=== PATIENT | male | born 1945 | race Caucasian/White ===

== ENCOUNTER 2025-04-02 10:43 | Outpatient (REF) | payer MEDICARE, SELFPAY ==
--- OUTSIDE RECORDS SUMMARY | 2025-04-02 12:21 | XMS_ITS | Clinical Summary ---
Author Organization [facility] Address [address] [place] [address] Care Team Providers Care Quality Control Specialist Name Role Phone Osmar Nance DO Primary Care Provider [phone] Allergies No known active allergies Medications No known medications Active Problems No known active problems Social History Tobacco Use Types Packs/Day Years Used Date Smoking Tobacco: Every Day Cigarettes 0.5 Smokeless Tobacco: Never Alcohol Use Standard Drinks/Week Comments Yes 0 (1 standard drink = 0.6 oz pur e alcohol) Sex and Gender Information Value Date Recorded Sex Assigned at Male 01/13/2023 12:13 PM EDT Gender Identity Not on file Sexual Orientation Not on file Job Start Date Occupation Industry Not on file Not on file Not on file Last Filed Vital Signs Vital Sign Reading Time Taken Comments Blood Pressure 138/66 02/27/2023 1:40 PM EDT Pulse 78 02/27/2023 1:40 PM EDT Temperature 36.9 ??C (98.4 ??F) 02/27/2023 1:40 PM ED T Respiratory Rate - - Oxygen Saturation 97% 02/27/2023 1:40 PM EDT Inhaled Oxygen Concentration - - Weight 64.9 kg (143 lb) 02/27/2023 1:40 PM EDT Height - - Body Mass Index - - Plan of Treatment Health Maintenance Due Date Last Done Comments Hepatitis C Screening 1945 COVID-19 Vaccine (#1) 1945 Pneumococcal Vaccine (1 of 2 - PCV) 1953 Depression Screening 1959 Preventative Health Evaluation 1965 DTap / Tdap / Td (1 - Tdap) 1966 Shingrix-Zoster Vaccine (1 of 2) 1997 Fall Risk Assessment 02/25/2012 RSV Adult > 60+ Yrs or Pregn ant (1 - 1-dose 75+ series) 2022 Influenza Vaccine (Season Ended) 2025 Hepatitis B Vaccines Aged Out No long er eligible based on patient's age to complete this topic RSV Ped < 20 months Aged Out No longe r eligible based on patient's age to complete this topic Care Teams Quality Control Specialist Relationship Specialty Start Date End Date Osmar Nance DO [address] [place] [id number] PCP - General Internal Medicine 01/13/23
== END 2025-04-02 10:44 | disposition home or self-care (01) ==
LOC: HO.BBR 10:43
PROVIDERS: Visit Provider Internal Medicine
DX: Z13.89 Encounter for screening for other disorder (principal)